=== PATIENT | female | born 1965 | race Caucasian/White ===

== ENCOUNTER 2017-09-16 11:03 | Emergency (ER) | payer OTHER ==
[~2017-09-16] VITALS: Ht 165.1 cm; Wt 102.1 kg
[~2017-09-16 11:03] MED LIST: ALBU90OI INH; ATOR40TA PO; Cipro500 MG PO; IBUP400 PO; LISI5 PO; SPACE CHAMBER1 EACH MC; SULTRIDS PO; Zofran Odt4 MG PO
[2017-09-16] MEDS ORDERED: BENZ100A PO (12:15)
== END 2017-09-16 12:56 | disposition home or self-care (01) ==
LOC: ER 11:03
DX: J06.9 Acute upper respiratory infection, unspecified (principal); J45.909 Unspecified asthma, uncomplicated; Z79.899 Other long term (current) drug therapy; F17.200 Nicotine dependence, unspecified, uncomplicated
CPT/HCPCS: 99282

== ENCOUNTER 2018-01-05 10:52 | Emergency (ER) | payer OTHER ==
[~2018-01-05] VITALS: Ht 165.1 cm; Wt 113.4 kg
[~2018-01-05 10:52] MED LIST changes: +BENZ100A PO
== END 2018-01-05 13:26 | disposition home or self-care (01) ==
LOC: ER 10:52
DX: M17.11 Unilateral primary osteoarthritis, right knee (principal); R07.9 Chest pain, unspecified; J45.909 Unspecified asthma, uncomplicated; F17.200 Nicotine dependence, unspecified, uncomplicated
CPT/HCPCS: 73562-RT; 93005; 93010; 99283

== ENCOUNTER → 2018-09-10 | Outpatient (CLI) | payer OTHER | END | disposition home or self-care (01) | LOC: LAB SHORT 05:45 → LAB 05:45 | DX: Z00.00 Encounter for general adult medical examination without abnormal findings (principal); Z13.220 Encounter for screening for lipoid disorders; R10.11 Right upper quadrant pain | CPT/HCPCS: 87338 ==

== ENCOUNTER 2018-10-28 18:39 | Emergency (ER) | payer OTHER ==
[~2018-10-28] VITALS: Ht 165.1 cm; Wt 102.1 kg
[2018-10-28] MEDS ORDERED: LISI5 PO (19:37)
== END 2018-10-28 19:44 | disposition home or self-care (01) ==
LOC: ER 18:39
DX: R23.8 Other skin changes (principal); F17.200 Nicotine dependence, unspecified, uncomplicated; Z79.899 Other long term (current) drug therapy
CPT/HCPCS: 99282

== ENCOUNTER 2019-07-22 16:12 | Emergency (ER) | payer OTHER ==
[~2019-07-22] VITALS: Ht 165.1 cm; Wt 97.5 kg
[2019-07-22] MEDS ORDERED: ROBAFEN AC ORA473 ML PO (17:34)
[2019-07-22] MEDS ORDERED: BENZ100A PO (17:34)
== END 2019-07-22 17:45 | disposition home or self-care (01) ==
LOC: ER 16:12
DX: R05 Cough (principal); I10 Essential (primary) hypertension; F17.200 Nicotine dependence, unspecified, uncomplicated; Z79.899 Other long term (current) drug therapy
CPT/HCPCS: 71046; 99283-25

== ENCOUNTER 2021-01-15 12:48 | Emergency (ER) | payer OTHER ==
[~2021-01-15] VITALS: Ht 165.1 cm; Wt 116.1 kg
[~2021-01-15 12:48] MED LIST changes: +ROBAFEN AC ORA473 ML PO
== END 2021-01-15 15:43 | disposition home or self-care (01) ==
LOC: ER 12:48
DX: M79.662 Pain in left lower leg (principal); I10 Essential (primary) hypertension; Z88.5 Allergy status to narcotic agent
CPT/HCPCS: 93971; 99283-25

== ENCOUNTER 2023-06-21 09:39 | Emergency (ER) | payer OTHER ==
[~2023-06-21] VITALS: Ht 160 cm; Wt 114.3 kg
[2023-06-21 11:23] LABS: Influenza A, PCR NEGATIVE (NEGATIVE); Influenza B, PCR NEGATIVE (NEGATIVE); Resp Syncytial Virus, PCR NEGATIVE (NEGATIVE); SARS-Cov-2 (COVID-19) PCR, MMC NEGATIVE (NEGATIVE)
[2023-06-21] MEDS ORDERED: ESCI10 PO (12:32)
[2023-06-21] MEDS ORDERED: PRAVASTATIN SOD20 MG PO (12:32)
[2023-06-21] MEDS ORDERED: LOSA50 PO (12:33)
[2023-06-21 14:00] VITALS: BP 119/59
[2023-06-21] MEDS ORDERED: ALBU90OI INH (14:04)
[2023-06-21] MEDS ORDERED: PRED20 PO (14:04)
== END 2023-06-21 14:49 | disposition home or self-care (01) ==
LOC: ER 09:39
PROVIDERS: Student in an Organized Health Care Education/Training Program
DX: J20.9 Acute bronchitis, unspecified (principal); Z20.822 Contact with and (suspected) exposure to COVID-19; Z79.899 Other long term (current) drug therapy; I10 Essential (primary) hypertension; F17.210 Nicotine dependence, cigarettes, uncomplicated
CPT/HCPCS: 0241U; 71046; 94640; 94644; 94664; 99284-25; A9270; J7512

== ENCOUNTER 2024-03-30 08:47 | Emergency (ER) | payer OTHER ==
[~2024-03-30] VITALS: Ht 160 cm; Wt 108.9 kg
[~2024-03-30 08:47] MED LIST changes: +ESCI10 PO; +LOSA50 PO; +PRAVASTATIN SOD20 MG PO; +PRED20 PO
[2024-03-30 09:09] VITALS: BP 179/96
[2024-03-30] MEDS ORDERED: Amoxicillin500 MG PO (09:28)
[2024-03-30] MEDS ORDERED: IBUP600 PO (09:28)
== END 2024-03-30 09:45 | disposition home or self-care (01) ==
LOC: ER 08:47
DX: K04.7 Periapical abscess without sinus (principal); Z79.899 Other long term (current) drug therapy; Z79.52 Long term (current) use of systemic steroids; I10 Essential (primary) hypertension; F17.210 Nicotine dependence, cigarettes, uncomplicated
CPT/HCPCS: 99282

== ENCOUNTER 2024-08-23 08:29 | Day surgery (SDC) | payer OTHER ==
[~2024-08-23] VITALS: Ht 160 cm; Wt 115.8 kg
[~2024-08-23 08:29] MED LIST changes: +Amoxicillin500 MG PO; +Atropine Sulfate 0.1 MG/ML 10ML SYR ONE; +Glycopyrrolate 0.2 MG/ML 1MLVIAL ONE; +IBUP600 PO; +Lactated Ringer's 1,000 ML IV ONE; +Lidocaine 2% 5 ML SDV ONE; +Methylene Blue 1% 100 MG/10 ML VIAL ONE; +Ondansetron HCl 2 MG / ML 2ML Vial ONE; +Phenylephrine HCl 100 MCG/ML-NS 10MLSYR (1MG/10ML) ONE; +SuccINYLCHOLINE Chloride 100 MG/5 ML 5MLSYR ONE; +ePHEDrine Sulfate 50 MG/ML 1ML Injection ONE
[2024-08-23] MEDS ORDERED: propofoL 50 ML IV ONE (09:21)
[2024-08-23] MEDS ORDERED: Lactated Ringer's 1,000 ML IV ONE (10:00)
[2024-08-23 11:03] VITALS: BP 137/87
== END 2024-08-23 11:00 | disposition home or self-care (01) ==
LOC: ORSCSDS 08:29
PROVIDERS: Surgery
PROC: 0DJD8ZZ Inspection of Lower Intestinal Tract, Via Natural or Artificial Opening Endoscopic (ICD-10-PCS; principal; 2024-08-23 10:15)
DX: Z12.11 Encounter for screening for malignant neoplasm of colon (principal); K21.9 Gastro-esophageal reflux disease without esophagitis; I10 Essential (primary) hypertension; E78.5 Hyperlipidemia, unspecified; E78.1 Pure hyperglyceridemia; Z72.0 Tobacco use; F43.10 Post-traumatic stress disorder, unspecified; E66.9 Obesity, unspecified; Z79.899 Other long term (current) drug therapy
CPT/HCPCS: J0330; J0461; J2371; J2405; J2704; J7120; Q9968